=== PATIENT | female | born 1970 | race Caucasian/White ===

== ENCOUNTER 2016-11-21 19:00 | Inpatient (IN) | payer MEDICAID ==
[~2016-11-21] VITALS: Ht 165.1 cm; Wt 112.7 kg
[2016-11-21] MEDS ORDERED: OPTIRAY 350 100 ML VIAL HMH IV ONE (19:01)
[2016-11-21] MEDS ORDERED: KETOROLAC 30 MG/ML VIAL ONE (22:22)
[2016-11-21] MEDS ORDERED: DIPHENHYDRAMINE 50 MG/ML VIAL ONE (22:22)
[2016-11-21] MEDS ORDERED: METOCLOPRAMIDE 10 MG/2 ML VIAL ONE (22:22)
[2016-11-21] MEDS ORDERED: SODIUM CHLORIDE 0.9% 1,000 ML ONE (22:22)
[2016-11-22] MEDS ORDERED: hePARIN in D5W (40 UNITS/ML) 500 ML IV SCH (00:30)
[2016-11-22] MEDS ORDERED: HEPARIN 5,000 UNITS/ML **DVT/PE IV PRN (01:00)
[2016-11-22] MEDS ORDERED: HEPARIN 20,000 UNIT/500 ML *DVT/PE IV SCH (01:00)
[2016-11-22 02:59] VITALS: BMI 42.2
[2016-11-22 03:01] VITALS: BP_SYST 128; RESP 20; TEMP 97.5
[2016-11-22 03:02] VITALS: BP_SYST 136
[2016-11-22] MEDS ORDERED: PNEUMO VAC 25 MCG/0.5 ML VL IM.VACC ONE (03:15)
[2016-11-22] MEDS ORDERED: ACETAMINOPHEN 325 MG TAB PO PRN (03:30)
[2016-11-22] MEDS ORDERED: TOPIRAMATE 25 MG TAB PO SCH (06:20)
[2016-11-22] MEDS: CYCLOBENZAPRINE 10 MG TAB PO SCH ×2 (06:48→20:31)
[2016-11-22 07:52] VITALS: BP_SYST 109; RESP 16; TEMP 98.1
[2016-11-22] MEDS ORDERED: MISSING DOSE XX ONE ×2 (09:50→22:10)
[2016-11-22] MEDS: FOLIC ACID 1 MG TAB PO SCH ×2 (10:42→20:31)
[2016-11-22 15:56] VITALS: BP_SYST 117; RESP 18; TEMP 98.7
[2016-11-22 20:07] VITALS: BP_SYST 116; RESP 18; TEMP 98.8
[2016-11-22] MEDS: TOPIRAMATE 25 MG TAB PO SCH (20:31)
[2016-11-22] MEDS: HEPARIN 20,000 UNIT/500 ML *DVT/PE IV SCH (23:02)
[2016-11-23 00:21] VITALS: BP_SYST 115; RESP 16; TEMP 98.4
[2016-11-23 04:17] VITALS: BP_SYST 105; RESP 16; TEMP 98.6
[2016-11-23] MEDS: HEPARIN 5,000 UNITS/ML **DVT/PE IV PRN ×2 (07:14→20:22)
[2016-11-23 07:48] VITALS: BP_SYST 109; RESP 18; TEMP 98.3
[2016-11-23] MEDS ORDERED: MISSING DOSE XX ONE ×2 (08:10→19:55)
[2016-11-23] MEDS: HEPARIN 20,000 UNIT/500 ML *DVT/PE IV SCH ×2 (08:29→20:23)
[2016-11-23] MEDS: FOLIC ACID 1 MG TAB PO SCH ×2 (08:29→20:20)
[2016-11-23 11:11] VITALS: BP_SYST 110; RESP 18; TEMP 98.9
[2016-11-23] MEDS ORDERED: ACETAMIN/BUTALB/CAFF ONE (16:47)
[2016-11-23] MEDS: ACETAMIN/BUTALB/CAFF PO PRN ×2 (16:52→23:00)
[2016-11-23 19:00] VITALS: BP_SYST 158; RESP 18; TEMP 97.5
[2016-11-23] MEDS: TOPIRAMATE 25 MG TAB PO SCH (20:20)
[2016-11-23] MEDS: CYCLOBENZAPRINE 10 MG TAB PO SCH (20:20)
[2016-11-23 23:19] VITALS: BP_SYST 106; RESP 20; TEMP 98.4
[2016-11-24 03:30] VITALS: BP_SYST 108; RESP 18; TEMP 98.3
[2016-11-24] MEDS ORDERED: MISSING DOSE XX ONE ×3 (05:10→23:30)
[2016-11-24] MEDS: HEPARIN 20,000 UNIT/500 ML *DVT/PE IV SCH ×2 (05:26→23:51)
[2016-11-24 07:40] VITALS: BP_SYST 109; RESP 16; TEMP 98.2
[2016-11-24] MEDS: FOLIC ACID 1 MG TAB PO SCH ×2 (08:37→20:34)
[2016-11-24] MEDS ORDERED: BISACODYL EC 5 MG TAB PO ONE (10:40)
[2016-11-24 11:16] VITALS: BP_SYST 122; RESP 18; TEMP 98.4
[2016-11-24] MEDS: ACETAMIN/BUTALB/CAFF PO PRN ×2 (14:55→23:46)
[2016-11-24 15:39] VITALS: BP_SYST 118; RESP 16; TEMP 98.7
[2016-11-24 19:00] VITALS: BP_SYST 107; RESP 18; TEMP 98.2
[2016-11-24] MEDS: Senna/DSS 50/8.6 MG TAB PO SCH (20:34)
[2016-11-24] MEDS: CYCLOBENZAPRINE 10 MG TAB PO SCH (20:34)
[2016-11-24] MEDS: TOPIRAMATE 25 MG TAB PO SCH (20:34)
[2016-11-24 23:23] VITALS: BP_SYST 103; RESP 18; TEMP 98.6
[2016-11-25 03:16] VITALS: BP_SYST 106; RESP 18; TEMP 98
[2016-11-25] MEDS ORDERED: MISSING DOSE XX ONE ×2 (07:15→15:10)
[2016-11-25 07:33] VITALS: BP_SYST 102; RESP 18; TEMP 98.2
[2016-11-25] MEDS: FOLIC ACID 1 MG TAB PO SCH ×2 (08:09→20:38)
[2016-11-25] MEDS: HEPARIN 20,000 UNIT/500 ML *DVT/PE IV SCH (08:10)
[2016-11-25] MEDS: ACETAMIN/BUTALB/CAFF PO PRN ×2 (08:15→20:40)
[2016-11-25 11:40] VITALS: BP_SYST 113; RESP 18; TEMP 97.8
[2016-11-25 15:37] VITALS: BP_SYST 118; RESP 18; TEMP 97.6
[2016-11-25 18:04] VITALS: Ht 165.1 cm; Wt 112.7 kg
[2016-11-25 19:38] VITALS: BP_SYST 103; RESP 18; TEMP 98
[2016-11-25] MEDS: CYCLOBENZAPRINE 10 MG TAB PO SCH (20:38)
[2016-11-25] MEDS: Senna/DSS 50/8.6 MG TAB PO SCH (20:38)
[2016-11-25] MEDS: TOPIRAMATE 25 MG TAB PO SCH (20:39)
[2016-11-25 23:53] VITALS: BP_SYST 104; RESP 16; TEMP 98
[2016-11-26] MEDS ORDERED: MISSING DOSE XX ONE
[2016-11-26] MEDS: HEPARIN 20,000 UNIT/500 ML *DVT/PE IV SCH (00:29)
[2016-11-26] MEDS: ACETAMIN/BUTALB/CAFF PO PRN ×3 (00:31→11:16)
[2016-11-26 04:06] VITALS: BP_SYST 119; RESP 16; TEMP 97.7
[2016-11-26 07:32] VITALS: BP_SYST 106; RESP 16; TEMP 98.3
[2016-11-26] MEDS: FOLIC ACID 1 MG TAB PO SCH (08:22)
[2016-11-26] MEDS ORDERED: Rivaroxaban 15 MG TAB PO SCH (09:40)
[2016-11-26 10:09] VITALS: BP_SYST 106; RESP 16; TEMP 98.3
== END 2016-11-26 13:04 | disposition home or self-care (01) | DRG 175 ==
LOC: ENRESERVTM → ENRESERVDT → ER 19:00 → EMR 11-22 00:21 → ENPENDDIS 11-22 00:21 → PCU2 11-22 02:36
PROVIDERS: ADMIT Internal Medicine; ATTEND Internal Medicine
DX: I26.09 Other pulmonary embolism with acute cor pulmonale (principal); Z68.41 Body mass index [BMI] 40.0-44.9, adult; I82.532 Chronic embolism and thrombosis of left popliteal vein; I87.2 Venous insufficiency (chronic) (peripheral); E55.9 Vitamin D deficiency, unspecified; I25.10 Atherosclerotic heart disease of native coronary artery without angina pectoris; I25.2 Old myocardial infarction; M19.90 Unspecified osteoarthritis, unspecified site; Z98.84 Bariatric surgery status; G43.909 Migraine, unspecified, not intractable, without status migrainosus; E66.01 Morbid (severe) obesity due to excess calories; Z87.891 Personal history of nicotine dependence; Z79.82 Long term (current) use of aspirin
CPT/HCPCS: 36415; 71020; 71260; 80053; 80061; 81240; 81241; 82306; 82378; 82553; 82803; 83090; 83540; 83735; 83880; 84439; 84443; 84466; 84484; 85025; 85250; 85270; 85300; 85303; 85306; 85335; 85379; 85525; 85610; 85613; 85635; 85730; 85732; 86038; 86141; 86147; 90732; 93005; 93306; 93970; 96361; 96365; 96375

== ENCOUNTER 2016-11-27 17:32 | Emergency (ER) | payer MEDICAID | END 2016-11-27 20:20 | disposition left against medical advice (07) | LOC: ER 17:32 | DX: Z53.21 Procedure and treatment not carried out due to patient leaving prior to being seen by health care provider (principal) | CPT/HCPCS: 99281 ==